=== PATIENT | female | born 1990 ===

== ENCOUNTER 2023-04-04 11:11 | Outpatient (CLI) | payer OTHER | END 2023-04-04 17:17 | disposition home or self-care (01) | LOC: PRENATAL 11:11 | PROVIDERS: ATTEND Obstetrics & Gynecology Maternal & Fetal Medicine | DX: O35.9XX0 Maternal care for (suspected) fetal abnormality and damage, unspecified, not applicable or unspecified (principal); O35.3XX0 Maternal care for (suspected) damage to fetus from viral disease in mother, not applicable or unspecified; O44.00 Complete placenta previa NOS or without hemorrhage, unspecified trimester; Z3A.19 19 weeks gestation of pregnancy ==

== ENCOUNTER 2023-07-01 09:40 | Outpatient (CLI) | payer OTHER | END 2023-07-01 17:48 | disposition home or self-care (01) | LOC: PRENATAL 09:40 | PROVIDERS: ATTEND Obstetrics & Gynecology Maternal & Fetal Medicine | DX: O26.849 Uterine size-date discrepancy, unspecified trimester (principal); O36.8199 Decreased fetal movements, unspecified trimester, other fetus; O09.529 Supervision of elderly multigravida, unspecified trimester; Z3A.32 32 weeks gestation of pregnancy ==

== ENCOUNTER 2023-08-21 06:36 | Inpatient (IN) | payer OTHER ==
[~2023-08-21] VITALS: Ht 160 cm; Wt 71.2 kg
[2023-08-21] MEDS ORDERED: ATABEX OB TABL1 EACH PO (07:54)
[2023-08-21 08:17] LABS: HEMATOCRIT 31.1 % (36.0-45.00); HEMOGLOBIN 10.8 g/dL (12.0-15.00); MEAN CELL VOLUME 95.1 fL (80.00-100.00); MEAN CORPUSCULAR HGB CONC 34.7 g/dl (32.0-36.0); PLATELET COUNT 158 K/uL (150-450); RED BLOOD COUNT 3.27 M/uL (4.00-6.00); RED CELL DISTRIBUTION WIDTH 14.1 % (11.5-14.5)
[2023-08-21 08:17] LABS: URINE APPEARANCE Clear; URINE BILIRRUBIN Negative (NEGATIVE); URINE COLOR Yellow; URINE GLUCOSE Negative (NEGATIVE); URINE LEUKOCYTE Trace; URINE NITRATE Negative; URINE PROTEIN Negative (NEGATIVE)
[2023-08-21 08:23] LABS: URINE BACTERIA 3743.3 uL (0.0-1933); URINE EPITHELIAL CELLS 22.4 uL (0.0-38.8); URINE RBC 42.8 uL (0.0-20.8); URINE WBC 91.3 uL (0.0-23.2)
[2023-08-21 08:34] LABS: URINE YEAST NEGATIVE /hpf
[2023-08-21 08:35] LABS: URINE BLOOD Trace
[2023-08-21 08:36] LABS: INR < 0.93; PARTIAL THROMBOPLASTIN TIME 28.7 SECONDS (22.0-34.0); PROTHROMBIN TIME 9.8 SECONDS (9.0-11.5)
[2023-08-22 06:16] LABS: HEMATOCRIT 26.7 % (36.0-45.00); HEMOGLOBIN 9.4 g/dL (12.0-15.00); MEAN CELL VOLUME 96.1 fL (80.00-100.00); MEAN CORPUSCULAR HEMOGLOBIN 33.9 pg (27.00-32.0); MEAN CORPUSCULAR HGB CONC 35.3 g/dl (32.0-36.0); PLATELET COUNT 151 K/uL (150-450); RED BLOOD COUNT 2.78 M/uL (4.00-6.00); RED CELL DISTRIBUTION WIDTH 13.6 % (11.5-14.5)
[2023-08-22 06:26] LABS: ABG PH 7.311 (7.35-7.45); ABG PO2 14.5 mmHg (80-100); ABG pCO2 38.4 mmHg (35-45); BASE EXCESS -6.7 mmol/l; SaO2 14.6 %; Tco2 20.1 mmol/l; o2 21 %
[2023-08-23 06:52] LABS: PLATELET COUNT 174 K/uL (150-450); RED BLOOD COUNT 2.34 M/uL (4.00-6.00); RED CELL DISTRIBUTION WIDTH 13.8 % (11.5-14.5)
[2023-08-23 07:00] LABS: HEMATOCRIT 22.7 % (36.0-45.00); MEAN CORPUSCULAR HEMOGLOBIN 32.9 pg (27.00-32.0)
[2023-08-23 07:01] LABS: HEMOGLOBIN 7.7 g/dL (12.0-15.00)
[2023-08-24 02:26] LABS: HEMATOCRIT 26.8 % (36.0-45.00); HEMOGLOBIN 9.3 g/dL (12.0-15.00); MEAN CORPUSCULAR HEMOGLOBIN 30.8 pg (27.00-32.0); MEAN CORPUSCULAR HGB CONC 34.7 g/dl (32.0-36.0); PLATELET COUNT 188 K/uL (150-450); RED BLOOD COUNT 3.01 M/uL (4.00-6.00); RED CELL DISTRIBUTION WIDTH 18.9 % (11.5-14.5)
[2023-08-24] MEDS ORDERED: FERROUS SULFAT325 MG PO (10:07)
[2023-08-24] MEDS ORDERED: IBUPROFEN800 MG PO (10:07)
== END 2023-08-24 15:34 | disposition home or self-care (01) | DRG 787 ==
LOC: LDR 06:36 → OB/GYN 08-22 03:21
PROVIDERS: ADMIT Obstetrics & Gynecology; ATTEND Obstetrics & Gynecology
PROC: 4A1HXCZ Monitoring of Products of Conception, Cardiac Rate, External Approach (ICD-10-PCS; 2023-08-21)
PROC: 3E033VJ Introduction of Other Hormone into Peripheral Vein, Percutaneous Approach (ICD-10-PCS; 2023-08-21)
PROC: 10D00Z1 Extraction of Products of Conception, Low, Open Approach (ICD-10-PCS; principal; 2023-08-22 00:30)
PROC: 30233N1 Transfusion of Nonautologous Red Blood Cells into Peripheral Vein, Percutaneous Approach (ICD-10-PCS; 2023-08-23)
DX: O61.0 Failed medical induction of labor (principal); O36.63X0 Maternal care for excessive fetal growth, third trimester, not applicable or unspecified; O36.8330 Maternal care for abnormalities of the fetal heart rate or rhythm, third trimester, not applicable or unspecified; O99.02 Anemia complicating childbirth; D62 Acute posthemorrhagic anemia; O62.1 Secondary uterine inertia; Z3A.39 39 weeks gestation of pregnancy; Z37.0 Single live birth; Z20.822 Contact with and (suspected) exposure to COVID-19